=== PATIENT | male | born 1990 | race American Indian/Alaskan Native ===

== ENCOUNTER 2016-06-28 11:48 | Emergency (ER) | payer SELFPAY ==
[2016-06-28 11:57] VITALS: BP 142/81
[2016-06-28] MEDS ORDERED: XYLOCAINE 1% MPF 5 mL INFILTRATI ONE (13:33)
--- NOTE | 2016-06-28 13:51 | Emergency Department Report ---
ED General Adult HPI - General Chief complaint: Extremity Injury, Upper Stated complaint: RT HAND INFECTION Time Seen by Provider: 06/28/16 13:32 Source: patient Mode of arrival: Ambulatory Limitations: No Limitations - History of Present Illness Initial comments: Patient c/o infected right middle finger x 2 days. States having swelling to finger, and pain only with movement. Reports soaking finger in empson salt. Denies fever, chills, difficulty using finger, weakness, tingling, numbness. No other acute complaints today. - Related Data Previous Rx's Medication Instructions Recorded Last Taken Type Ibuprofen [Motrin] 800 mg PO Q8HR PRN #10 tablet 06/28/16 Unknown Rx Sulfamethoxazole/Trimethoprim 1 each PO BID #10 tablet 06/28/16 Unknown Rx [Bactrim DS TAB] Allergies Allergy/AdvReac Type Severity Reaction Status Date / Time erythromycin base Allergy Hives Verified 06/28/16 11:55 ED Review of Systems ROS: Stated complaint: RT HAND INFECTION Other details as noted in HPI ED Past Medical Hx - Past Medical History Previous Medical History?: No - Surgical History Past Surgical History?: No - Social History Smoking Status: Current Every Day Smoker Substance Use Type: None - Medications Home Medications: Home Medications Medication Instructions Recorded Confirmed Last Taken Type Ibuprofen [Motrin] 800 mg PO Q8HR PRN #10 tablet 06/28/16 Unknown Rx Sulfamethoxazole/Trimethoprim 1 each PO BID #10 tablet 06/28/16 Unknown Rx [Bactrim DS TAB] ED Physical Exam - General Limitations: No Limitations General appearance: alert, in no apparent distress - Head Head exam: Present: atraumatic, normocephalic - Eye Eye exam: Present: normal appearance, PERRL, EOMI. Absent: scleral icterus, conjunctival injection, periorbital swelling, periorbital tenderness - Neck Neck exam: Present: normal inspection, full ROM. Absent: tenderness, lymphadenopathy - Respiratory Respiratory exam: Present: normal lung sounds bilaterally. Absent: respiratory distress - Cardiovascular Cardiovascular Exam: Present: regular rate, normal rhythm - GI/Abdominal GI/Abdominal exam: Present: soft, normal bowel sounds. Absent: tenderness - Extremities Exam Extremities exam: Present: full ROM, tenderness (R middle finger on deep palpation.), normal capillary refill. Absent: normal inspection (1 cm abscess pocket on doherty aspect of right DIP, middle finger. + overlying calluses.), pedal edema - Neurological Exam Neurological exam: Present: alert, oriented X3, normal gait, reflexes normal. Absent: motor sensory deficit - Psychiatric Psychiatric exam: Present: normal affect, normal mood - Skin Skin exam: Present: warm, dry, intact, other (Abscess as described above.) ED Course Vital Signs 06/28/16 11:55 Temperature 98.7 F Pulse Rate 64 Respiratory 16 Rate Blood Pressure 142/81 O2 Sat by Pulse 97 Oximetry - I & D Right Distal Finger Type of Procedure: Simple Site: doherty surface of r middle finger. Blade Size: 11 I & D Procedure: betadine prep, sterile drapes applied, sterile dressing applied Progress: Pus expressed. Patient tolerated procedure and progressed well. Critical care attestation.: If time is entered above; I have spent that time in minutes in the direct care of this critically ill patient, excluding procedure time. ED Disposition Clinical Impression: Abscess of finger Qualifiers: Laterality: right Qualified Code(s): L02.511 - Cutaneous abscess of right hand Disposition: DISCHARGED TO HOME OR SELFCARE Is pt being admited?: No Does the pt Need Aspirin: No Condition: Stable Instructions: Abscess Incision and Drainage (ED), Acute Wound Care (ED) Prescriptions: Sulfamethoxazole/Trimethoprim [Bactrim DS TAB] 1 each PO BID #10 tablet Ibuprofen [Motrin] 800 mg PO Q8HR PRN #10 tablet PRN Reason: Pain Referrals: PRIMARY CARE, [Primary Care Provider] - 2-3 Days [facility] [Outside] - 2-3 Days
== END 2016-06-28 14:33 | disposition home or self-care (01) ==
LOC: ED 11:48
DX: L02.511 Cutaneous abscess of right hand (principal); F17.200 Nicotine dependence, unspecified, uncomplicated; Z88.1 Allergy status to other antibiotic agents
CPT/HCPCS: 87116

== ENCOUNTER 2016-08-11 14:09 | Emergency (ER) | payer SELFPAY ==
[2016-08-11 15:02] VITALS: BP 127/76
== END 2016-08-11 17:19 | disposition left against medical advice (07) ==
LOC: ED 14:09
DX: R10.30 Lower abdominal pain, unspecified (principal); Z53.21 Procedure and treatment not carried out due to patient leaving prior to being seen by health care provider